=== PATIENT | female | born 1955 | race Caucasian/White ===

== ENCOUNTER 2019-10-28 14:15 | Emergency (ER) | payer MEDICARE, OTHER, SELFPAY ==
--- NOTE | ~2019-10-28 | XR_ITS ---
EXAMINATION: XR chest 2V 10/28/2019 14:39 INDICATION: Chest pain PROCEDURE: 2 view chest COMPARISON: 05/20/2015 FINDINGS: The lungs are clear. The cardiomediastinal silhouette is within normal limits. There are no pleural effusions. There is no pneumothorax suspected. IMPRESSION: 1: NO ACUTE CARDIOPULMONARY DISEASE. Reviewed, dictated and finalized at location A.
--- NOTE | 2019-10-28 14:22 | ECG_ITS ---
Measurements Intervals [place] Rate: 88 P: 168 KS: 141 QRS: 161 QRSD: 87 T: 161 QT: 347 QTc: 421 Interpretive Statements SINUS RHYTHM RSR' IN V1 OR V2, CONSIDER RIGHT VENTRICULAR HYPERTROPHY OR RIGHT VCD ARM LEADS REVERSED ATYPICAL ECG Electronically Signed On 10-28-2019 15:21:38 CDT by Russ Evans D.O.
[2019-10-28 14:25] VITALS: BP 148/66; PULSE 85; RESP 18; TEMP 36.4; O2SAT 100
[2019-10-28 14:41] LABS: Basophils Absolute Auto 0.1 K/mm3 (0.0-0.1); Basophils Percent Auto 0.9 % (0.2-1.2); Eosinophils Absolute Auto 0.1 K/mm3 (0-0.3); Eosinophils Percent Auto 1.8 % (0-4.4); Hematocrit 43.2 % (37.0-47.0); Hemoglobin 14.2 g/dL (12.0-15.0); Immature Granulocyte Absolute 0.02 K/mm3 (0.00-0.031); Immature Granulocyte Percent A 0.3 % (0-0.5); Lymphocytes Percent Auto 27.6 % (18.3-44.2); Mean Corpuscular HGB Conc 32.9 g/dl (32-36); Mean Corpuscular Hemoglobin 28.1 pg (26-34); Mean Corpuscular Volume 85.5 fl (80-100); Mean Platelet Volume 9.6 fl (7.4-10.4); Monocytes Absolute Auto 0.7 K/mm3 (0.1-0.6); Monocytes Percent Auto 8.4 % (2.6-8.5); Neutrophils Absolute Auto 4.9 K/mm3 (1.3-6.7); Platelet Count Result 246 k/mm3 (150-375); Red Blood Count 5.05 M/mm3 (4.2-5.4); Red Cell Distribution Width 13.8 % (11.5-14.5)
[2019-10-28 14:53] LABS: Blood Urea Nitrogen 13 mg/dL (7-17); Calcium 9.6 mg/dL (8.4-10.2); Carbon Dioxide 28 mmol/L (22-30); Chloride 101 mmol/L (98-107); Estimated Glomerular Filt Rate > 60; Glucose 90 mg/dL (65-105); Potassium 3.7 mmol/L (3.4-5.0); Sodium 140 mmol/L (137-145)
[2019-10-28 15:06] LABS: Troponin I < 0.012 ng/mL (0.000-0.034)
[2019-10-28 15:10] LABS: Add Urine Microscopic? NO; Appearance Urine Clear (Clear); Bilirubin Urine Negative (Negative); Blood Urine Negative (Negative); Color Urine Colorless (Yellow); Glucose Urine UA Negative (Negative); Ketones Urine Negative (Negative); Leukocyte Esterase Ur Negative LEU/UL (Negative); Nitrate Urine Negative (Negative); Protein Urine Negative (Negative); Specific Grav Ur 1.005 (1.001-1.035); Urobilinogen Urine Negative mg/dL (<2.0)
[2019-10-28 15:44] VITALS: BP 142/74; PULSE 88; RESP 17; O2SAT 97
--- NOTE | 2019-10-28 16:58 | ED.CHESTPAIN ---
HPI - Chest Pain General Chief Complaint: Chest Pain Stated Complaint: chest pain Time Seen by Provider: 10/28/19 15:29 History of Present Illness HPI narrative: Patient is a 64-year-old female who presents ER with left-sided chest pain. It occurred when she woke up today. It is a twinge or pull just in the left center part of her chest. No radiation. Lasted 4 to 6 seconds. She has had a couple other times today. No association with exertion. No runny nose/sore throat/productive cough. She has no diaphoresis. No history of heart disease. She does report that family member was recently diagnosed with a heart ailment after ignoring it and this is made her increasingly anxious about the discomfort she is having. Related Data Home Medications Medication Instructions Recorded Confirmed albuterol sulfate INHALATION 10/28/19 aspirin 81 mg PO DAILY 10/28/19 10/28/19 clonazepam 10/28/19 cyclobenzaprine mg 10/28/19 ergocalciferol (vitamin D2) 10/28/19 famotidine [Pepcid] 20 mg PO BID 10/28/19 10/28/19 fexofenadine 180 mg PO DAILY 10/28/19 10/28/19 levothyroxine 10/28/19 melatonin 3 mg PO HS PRN 10/28/19 10/28/19 omeprazole magnesium [Prilosec OTC] PO 10/28/19 Allergies Allergy/AdvReac Type Severity Reaction Status Date / Time cephalexin Allergy Mild Unknown Verified 10/28/19 15:40 clemastine Allergy Mild Unknown Verified 10/28/19 15:40 erythromycin base Allergy Mild Unknown Verified 10/28/19 15:40 hydrocodone Allergy Mild DIZZY, Verified 10/28/19 15:40 LIGHTHEADEDNESS naproxen Allergy Mild FLUSHING, Verified 10/28/19 15:40 HOT FLASHES Penicillins Allergy Mild Unknown Verified 10/28/19 15:40 Sulfa (Sulfonamide Allergy Mild Unknown Verified 10/28/19 15:40 Antibiotics) adhesive tape Allergy Unknown Unknown Verified 10/28/19 15:40 codeine Allergy Unknown Unknown Verified 10/28/19 15:40 tetracycline Allergy Unknown Unknown Unverified 10/28/19 15:40 Review of Systems Review of Systems: All systems reviewed & are unremarkable except as noted in HPI and below Constitutional: Constitutional: Denies chills, Denies fever(s) and Denies weakness ENT: Denies nasal congestion and Denies sore throat Cardiovascular: Cardiovascular: Reports chest pain, Denies rapid heart rate and Denies radiating jaw, neck or arm pain Respiratory: Respiratory: Denies cough, Denies dyspnea and Denies wheezing Musculoskeletal: Musculoskeletal: Denies back pain, Denies myalgias, Denies joint swelling and Reports muscle cramps PMFSH Past Medical History Medical History (Updated 10/28/19 @ 17:15 by Ersato Pacheco MD) Hyperlipidemia Hypertension Surgical History Surgical History (Updated 10/28/19 @ 17:04 by Erasto Pacheco MD) H/O tubal ligation Family History Family History (Updated 12/14/13 @ 07:13 by DOCTOR UNKNOWN) Father Malignant neoplasm of prostate Family history of mental disorder Family history of osteoarthritis Family history of cardiac disorder Mother Family history of cardiac disorder Family history of Alzheimer's disease Social History Social History Smoking status: Never smoker Alcohol intake: never Gender identity (if verbalized by the patient): Female Exam Narrative: Exam Narrative: GENERAL: Well-appearing, well-nourished, and in no acute distress. HEAD: Normocephalic, atraumatic. ENT: Mucous membranes moist. CHEST: Clear to auscultation. No respiratory distress. HEART: Regular rate and rhythm. Normal peripheral pulses. ABDOMEN: Soft, nontender, nondistended. EXTREMITIES: Normal range of motion. No edema. SKIN: Warm, dry, no rash. NEURO: Alert and oriented x3. Course Vital Signs Vital signs: Vital Signs Temperature 97.5 F L 10/28/19 14:25 Pulse Rate 85 10/28/19 14:25 Respiratory Rate 18 10/28/19 14:25 Blood Pressure 148/66 H 10/28/19 14:25 Pulse Oximetry 100 10/28/19 14:25 Temperature 97.5 F L 10/28/19 14:25 Pulse Rate 88
[2019-10-28 17:00] VITALS: BP 134/75; PULSE 81; RESP 17; O2SAT 97
== END 2019-10-28 17:05 | disposition home or self-care (01) ==
PROVIDERS: Emergency Provider Emergency Medicine
DX: R07.89 Other chest pain (principal); E78.5 Hyperlipidemia, unspecified; I10 Essential (primary) hypertension; R94.31 Abnormal electrocardiogram [ECG] [EKG]
CPT/HCPCS: 36415; 71046; 80048; 81003; 84484; 85025; 85610; 85730; 93005; 99284

== ENCOUNTER → 2020-01-09 09:41 | Outpatient (CLI) | payer MEDICARE, OTHER, SELFPAY ==
--- NOTE | ~2020-01-09 | MM_ITS ---
EXAMINATION: MM diagnostic [facility] BI w padmini HISTORY: Right breast lump, 6:00 TECHNIQUE: Bilateral ML, MLO and craniocaudal Tomosynthesis images of both breasts were performed and synthetic 2-D images were generated. CAD analysis was submitted and interpreted. COMPARISON: 03/08/2018, 07/29/2013 bilateral digital screening mammogram examinations BREAST PARENCHYMAL COMPOSITION: The breasts are almost entirely fatty. FINDINGS: No suspicious mass or architectural distortion, malignant calcification, skin thickening or retraction or significant new or developing density is detected. IMPRESSION: 1. No mammographic evidence of malignancy 2. Routine mammographic screening is recommended. BI-RADS Category 1: Negative Reviewed, dictated and finalized at location A.
== END ==
PROVIDERS: Visit Provider Nurse Practitioner Obstetrics & Gynecology
DX: N63.15 Unspecified lump in the right breast, overlapping quadrants (principal)
CPT/HCPCS: 77062; 77066; G0279

== ENCOUNTER → 2020-08-06 12:29 | Outpatient (CLI) | payer MEDICARE, OTHER, SELFPAY ==
--- NOTE | ~2020-08-06 | US_ITS ---
EXAMINATION: US soft tissue chest DATE: 08/06/2020 13:00 INDICATION: Palpable areas inferior to the bilateral breasts. TECHNIQUE: Multiple grayscale and Doppler ultrasound images of the region of concern at the anterior inferior left and right chest were obtained. COMPARISON: None FINDINGS: Normal appearance to the subcutaneous fat, ribs and intercostal spaces at the anterior chest wall reg ion of concern inferior to the left and right breasts. No abnormal masses or fluid collections identi fied. IMPRESSION: 1. Normal study. No etiology identified for palpable abnormality at the bilateral inframammary region s of concern. Reviewed, dictated and finalized at location A. IMPRESSION: 1. Normal study. No etiology identified for palpable abnormality at the bilater al inframammary regions of concern.
== END ==
DX: R22.9 Localized swelling, mass and lump, unspecified (principal)
CPT/HCPCS: 76604

== ENCOUNTER → 2021-10-24 12:51 | Outpatient (CLI) | payer MEDICARE, OTHER, SELFPAY ==
--- NOTE | ~2021-10-24 | MM_ITS ---
EXAMINATION: MM screening [facility] BI w padmini HISTORY: Screening TECHNIQUE: Craniocaudal and mediolateral oblique 3-D tomosynthesis images were obtained and synthetic 2-D images were generated. CAD analysis was submitted and interpreted. COMPARISON: Comparison to multiple prior studies sequentially, with oldest reviewed study dated 06/04. BREAST PARENCHYMAL COMPOSITION: There are scattered areas of fibroglandular density. FINDINGS: There is no evidence of suspicious mass, calcification, or architectural distortion to sugg est malignancy in either breast. There has been no suspicious interval change. IMPRESSION: 1. No mammographic evidence of malignancy. 2. Recommend routine screening mammography in one year. BI-RADS Category 1: Negative Reviewed, dictated and finalized at location A.
== END ==
PROVIDERS: Visit Provider Nurse Practitioner Obstetrics & Gynecology
DX: Z12.31 Encounter for screening mammogram for malignant neoplasm of breast (principal)
CPT/HCPCS: 77063; 77067

== ENCOUNTER 2021-11-20 14:14 | Emergency (ER) | payer MEDICARE, OTHER, SELFPAY ==
[2021-11-20 14:19] VITALS: BP 137/71; PULSE 97; RESP 16; TEMP 36.2; O2SAT 98
--- NOTE | 2021-11-20 14:33 | ED.SKABFB ---
HPI - Skin/Abscess/Foreign Bdy General Chief complaint: Skin/Abscess/Foreign Body Stated complaint: rash Time Seen by Provider: 11/20/21 14:17 Source: patient Mode of arrival: ambulatory Limitations: no limitations History of Present Illness HPI narrative: Ms. Sorto is a 66-year-old female patient presenting to the clinic today with complaints of pinpoint rash to her face, neck, and right knee. Reports the rash began on Wednesday and has spread some. States that the areas itch some and has caused some swelling underneath her left eye. She denies any new environmental changes however she states she has been watering a plant at home and thinks that this might be a contact dermatitis due to the plant or possibly to her pillow use. Related Data Home Medications Medication Instructions Recorded Confirmed clonazepam 0.5 mg tablet 10/28/19 cyclobenzaprine 5 mg tablet mg BID 10/28/19 ergocalciferol (vitamin D2) 1,250 10/28/19 mcg (50,000 unit) capsule denosumab 60 mg/mL subcutaneous 60 mg subcut [id number] 12/27/19 syringe (Prolia) hydrocortisone 2.5 % topical cream 2 applic topical BID PRN 12/27/19 mometasone 50 mcg/actuation nasal 2 spray intranasal DAILY 12/27/19 spray (Nasonex) famotidine 20 mg tablet (Pepcid) 20 mg PO DAILY 12/27/20 fexofenadine 180 mg tablet 90 mg PO BID 12/27/20 melatonin 3 mg tablet 5 mg PO HS PRN Insomnia 12/27/20 rosuvastatin 20 mg tablet (Crestor) 40 mg PO DAILY 12/27/20 Calcium 600 with Vitamin D2 11/20/21 levothyroxine 88 mcg tablet mcg 11/20/21 Allergies Allergy/AdvReac Type Severity Reaction Status Date / Time cephalexin Allergy Mild Unknown Verified 12/27/20 11:11 clemastine Allergy Mild Unknown Verified 12/27/20 11:11 erythromycin base Allergy Mild Unknown Verified 12/27/20 11:11 hydrocodone Allergy Mild DIZZY, Verified 12/27/20 11:11 LIGHTHEADEDNESS naproxen Allergy Mild FLUSHING, Verified 12/27/20 11:11 HOT FLASHES Penicillins Allergy Mild Unknown Verified 12/27/20 11:11 Sulfa (Sulfonamide Allergy Mild Unknown Verified 12/27/20 11:11 Antibiotics) adhesive tape Allergy Unknown Unknown Verified 12/27/20 11:11 codeine Allergy Unknown Unknown Verified 12/27/20 11:11 tetracycline Allergy Unknown Unknown Unverified 12/27/20 11:11 Review of Systems Review of Systems: Pertinent positives per HPI. Patient denies any fever, chills,, headache, visual changes, dizziness, cough, runny nose, sore throat, shortness of breath, chest pain, palpitations, nausea, vomiting, diarrhea, constipation, abdominal pain, or any urinary issues. [facility] Past Medical History Medical History Allergies Depression Hyperlipidemia Hypertension IBS (irritable bowel syndrome) Lipoma Mild acid reflux PAWAN on CPAP Sleep apnea Surgical History Surgical History H/O tubal ligation History of tonsillectomy Family History Family History Father Family history of mental disorder Family history of osteoarthritis Family history of cardiac disorder Family history of prostate cancer in father Mitral valve prolapse Mother Family history of cardiac disorder Family history of Alzheimer's disease Social History Social History Smoking status: Never smoker Alcohol intake: never Gender identity (if verbalized by the patient): Female Comments At the time of my signature, I reviewed and agree with the nursing past medical, surgical, social, and family history. There is no relevant family history pertinent to the patient complaint. Exam Narrative: General: Well-developed, well nourished, in no apparent distress Head: Normocephalic, atraumatic. Cardio: Regular rate and rhythm, s1 and s2 normal, no murmur appreciated. Resp: Clear to auscultation bilate
== END 2021-11-20 14:40 | disposition home or self-care (01) ==
PROVIDERS: Emergency Provider Nurse Practitioner Family
DX: R21 Rash and other nonspecific skin eruption (principal); E78.5 Hyperlipidemia, unspecified; I10 Essential (primary) hypertension; G47.33 Obstructive sleep apnea (adult) (pediatric); K21.9 Gastro-esophageal reflux disease without esophagitis
CPT/HCPCS: 99213; G0463

== ENCOUNTER 2022-09-28 14:12 | Emergency (ER) | payer MEDICARE, OTHER, SELFPAY ==
[2022-09-28 14:26] VITALS: BP 128/82; PULSE 96; RESP 18; TEMP 36.8; O2SAT 100
--- NOTE | 2022-09-28 14:31 | ED.SKABFB ---
HPI - Skin/Abscess/Foreign Bdy General Chief complaint: Skin/Abscess/Foreign Body Stated complaint: rash on skin Time Seen by Provider: 09/28/22 14:30 Source: patient Mode of arrival: ambulatory Limitations: no limitations History of Present Illness HPI narrative: Ms. Aniya middleton is a 67-year-old female patient presenting to the clinic today with complaints of a rash to her legs, arms, and abdomen. She reports that she thinks they may be spider bites. States that the started off is red and became blistery and are draining. She denies any pain. Denies any fever or chills. States that the rash is very itchy. Related Data Home Medications Medication Instructions Recorded Confirmed clonazepam 0.5 mg tablet 10/28/19 cyclobenzaprine 5 mg tablet mg BID 10/28/19 ergocalciferol (vitamin D2) 1,250 10/28/19 mcg (50,000 unit) capsule denosumab 60 mg/mL subcutaneous 60 mg subcut [id number] 12/27/19 syringe (Prolia) hydrocortisone 2.5 % topical cream 2 applic topical BID PRN 12/27/19 mometasone 50 mcg/actuation nasal 2 spray intranasal DAILY 12/27/19 spray (Nasonex) famotidine 20 mg tablet (Pepcid) 20 mg PO DAILY 12/27/20 fexofenadine 180 mg tablet 90 mg PO BID 12/27/20 rosuvastatin 20 mg tablet (Crestor) 40 mg PO DAILY 12/27/20 Calcium 600 with Vitamin D2 11/20/21 levothyroxine 88 mcg tablet mcg 11/20/21 melatonin 3 mg tablet 3 mg PO HS PRN Insomnia 07/29/22 Allergies Allergy/AdvReac Type Severity Reaction Status Date / Time cephalexin Allergy Mild Unknown Verified 09/28/22 14:36 clemastine Allergy Mild Unknown Verified 09/28/22 14:36 erythromycin base Allergy Mild Unknown Verified 09/28/22 14:36 hydrocodone Allergy Mild DIZZY, Verified 09/28/22 14:36 LIGHTHEADEDNESS naproxen Allergy Mild FLUSHING, Verified 09/28/22 14:36 HOT FLASHES Penicillins Allergy Mild Unknown Verified 09/28/22 14:36 Sulfa (Sulfonamide Allergy Mild Unknown Verified 09/28/22 14:36 Antibiotics) adhesive tape Allergy Unknown Unknown Verified 09/28/22 14:36 codeine Allergy Unknown Unknown Verified 09/28/22 14:36 tetracycline Allergy Unknown Unknown Verified 09/28/22 14:36 Review of Systems Review of Systems: Pertinent positives per HPI. Patient denies any fever, chills, headache, visual changes, dizziness, cough, runny nose, sore throat, shortness of breath, chest pain, palpitations, nausea, vomiting, diarrhea, constipation, abdominal pain, or any urinary issues. PMFSH Past Medical History Medical History Allergies Depression Hyperlipidemia Hypertension IBS (irritable bowel syndrome) Lipoma Mild acid reflux PAWAN on CPAP Sleep apnea Surgical History Surgical History H/O tubal ligation History of tonsillectomy Family History Family History Father Family history of mental disorder Family history of osteoarthritis Family history of cardiac disorder Family history of prostate cancer in father Mitral valve prolapse Mother Family history of cardiac disorder Family history of Alzheimer's disease Social History Social History Smoking status: Never smoker Alcohol intake: never Gender identity (if verbalized by the patient): Female Comments At the time of my signature, I reviewed and agree with the nursing past medical, surgical, social, and family history. There is no relevant family history pertinent to the patient complaint. Exam Narrative: General: Well-developed, well nourished, in no apparent distress Head: Normocephalic, atraumatic. Cardio: Regular rate and rhythm, s1 and s2 normal, no murmur appreciated. Resp: Clear to auscultation bilaterally, no rhonchi, rales, wheezing or rubs. Integumentary: [place], warm, and dry, red raised itchy blister
== END 2022-09-28 14:45 | disposition home or self-care (01) ==
PROVIDERS: Emergency Provider Nurse Practitioner Family
DX: S80.862A Insect bite (nonvenomous), left lower leg, initial encounter (principal); S80.861A Insect bite (nonvenomous), right lower leg, initial encounter; S30.861A Insect bite (nonvenomous) of abdominal wall, initial encounter; S40.862A Insect bite (nonvenomous) of left upper arm, initial encounter; S40.861A Insect bite (nonvenomous) of right upper arm, initial encounter; W57.XXXA Bitten or stung by nonvenomous insect and other nonvenomous arthropods, initial encounter; E78.5 Hyperlipidemia, unspecified; I10 Essential (primary) hypertension; K21.9 Gastro-esophageal reflux disease without esophagitis; G47.33 Obstructive sleep apnea (adult) (pediatric)
CPT/HCPCS: 99213; G0463

== ENCOUNTER 2024-10-08 11:25 | Emergency (ER) | payer MEDICARE, SELFPAY ==
--- NOTE | 2024-10-08 11:29 | ED.SKABFB ---
HPI - Skin/Abscess/Foreign Bdy General Chief complaint: Skin/Abscess/Foreign Body Stated complaint: Leg and Arms Skin Irritation,Open Sore Time Seen by Provider: 10/08/24 11:29 Source: patient Mode of arrival: ambulatory Limitations: no limitations History of Present Illness HPI narrative: Lalitha is a 69-year-old female patient presenting to the clinic today with complaints red raised itchy rash on her arms, legs, buttocks, and back. She reports symptoms started on . States she has been sitting outside and bugs have been biting her. States she felt a stinging sensation to her back a few days ago and took her shirt off and saw a little black bug biting her. Does have a blister to the left lower medial extremity. Patient is diabetic. Related Data Home Medications ?Medication ?Instructions ?Recorded ?Confirmed ?Last Taken ?Type cyclobenzaprine 5 mg tablet 5 mg PO BID PRN muscle spasms 10/28/19 09/21/24 Unknown History denosumab 60 mg/mL subcutaneous 60 mg subcut [id number] 12/27/19 09/21/24 Unknown History syringe (Prolia) mometasone 50 mcg/actuation nasal 2 spray intranasal DAILY 12/27/19 09/21/24 Unknown History spray (Nasonex) famotidine 20 mg tablet (Pepcid) 20 mg PO DAILY 12/27/20 09/21/24 Unknown History fexofenadine 180 mg tablet 90 mg PO BID 12/27/20 09/21/24 Unknown History melatonin 5 mg capsule mg PO .nightly 07/29/23 09/21/24 Unknown History ergocalciferol (vitamin D2) 1,250 1,250 mcg PO 2XW 02/03/24 09/21/24 Unknown History mcg (50,000 unit) capsule calcium carbonate (Calcium 600) 600 mg PO DAILY 04/20/24 09/21/24 Unknown History metformin 500 mg tablet 500 mg PO DAILY 04/20/24 10/08/24 Unknown History rosuvastatin 20 mg tablet (Crestor) 20 mg PO DAILY 05/30/24 09/21/24 Unknown History clonazepam 0.5 mg tablet (Klonopin) 0.5 mg PO DAILY PRN 06/27/24 09/21/24 Unknown History levothyroxine 112 mcg capsule 112 mcg PO DAILY 06/27/24 10/08/24 Unknown History levothyroxine 88 mcg tablet mcg 10/08/24 Unknown History (Synthroid) Allergies Allergy/AdvReac Type Severity Reaction Status Date / Time cephalexin Allergy Mild Unknown Verified 09/21/24 11:31 clemastine Allergy Mild Unknown Verified 09/21/24 11:31 erythromycin base Allergy Mild Unknown Verified 10/08/24 11:39 hydrocodone Allergy Mild DIZZY, Verified 09/21/24 11:31 LIGHTHEADEDNESS naproxen Allergy Mild FLUSHING, Verified 09/21/24 11:31 HOT FLASHES Penicillins Allergy Mild Unknown Verified 10/08/24 11:39 Sulfa (Sulfonamide Allergy Mild Unknown Verified 10/08/24 11:39 Antibiotics) adhesive tape Allergy Unknown Unknown Verified 09/21/24 11:31 codeine Allergy Unknown Unknown Verified 09/21/24 11:31 tetracycline Allergy Unknown Unknown Verified 10/08/24 11:39 Review of Systems Review of Systems: Pertinent positives per HPI. Patient denies any fever, chills, rash, headache, visual changes, dizziness, cough, runny nose, sore throat, shortness of breath, chest pain, palpitations, nausea, vomiting, diarrhea, constipation, abdominal pain, or any urinary issues. [facility] Past Medical History Medical History History of prediabetes PAWAN on CPAP Lipoma Depression Allergies Mild acid reflux IBS (irritable bowel syndrome) Sleep apnea Hyperlipidemia Hypertension Surgical History Surgical History History of tonsillectomy H/O tubal ligation Family History Family History Father Family history of mental disorder Family history of osteoarthritis Family history of cardiac disorder Family history of prostate cancer in father Mitral valve prolapse Mother Family history of cardiac disorder Family history of Alzheimer's disease Social History Social History Smoking status: Never smoker Alcohol intake: never Do You Feel Safe in your Home?: Yes Lack of Transportation: No Lack of Food: Never True Current Housing: I Have Housing Concerned About Future Housing: No Difficulty Paying Gas/Electric Bills: No Difficulty Paying for Meds: No Currently Unemployed: No Education: Associate Degree Difficulty w/ Childcare or Family Care: No Gender identity (if verbalized by the patient): Female Comments At the time of my signature, I reviewed and agree with the nursing past medical, surgical, social, and family history. There is no relevant family history pertinent to the patient complaint. Exam Narrative: General: Well-developed, well nourished, in no apparent distress Head: Normocephalic, atraumatic. Cardio: Regular rate and rhythm, s1 and s2 normal, no murmur appreciated. Resp: Clear to auscultation bilaterally, no rhonchi, rales, wheezing or rubs. Integumentary: [place], warm, and dry, red raised indurated itchy insect bites to the legs, arms, back, and right buttocks, blister to the left lower medial leg-blister drained using a 23 gauge needle and area was cleansed with antiseptic wound wash. Course Course Emergency Course: Portions of this record may have been created with voice recognition software. Level of Care: Express Care Visit Vital Signs Vital signs: Vital Signs Temperature 36.8 C 10/08/24 11:34 Pulse Rate 94 10/08/24 11:34 Respiratory Rate 20 10/08/24 11:34 Blood Pressure 131/72 10/08/24 11:34 Pulse Oximetry 99 10/08/24 11:34 Oxygen Delivery Room Air 10/08/24 11:34 Temperature 36.8 C 10/08/24 11:34 Pulse Rate 94 10/08/24 11:34 Respiratory Rate 20 10/08/24 11:34 Blood Pressure 131/72 10/08/24 11:34 Pulse Oximetry 99 10/08/24 11:34 Oxygen Delivery Room Air 10/08/24 11:34 Vital signs reviewed MDM - Skin/Abscess/Foreign Bdy MDM Narrative Medical decision making narrative: At the time of visit patient is resting comfortably on the exam table. Patient appears to be nontoxic. Plan: I suspect patient has a general allergic reaction to insect bites. Prescription for triamcinolone cream was sent to the pharmacy. Blister was drained in the clinic today using a 23 gauge needle and the area was washed using antiseptic wound wash. Supportive measures were discussed with the patient and they voiced understanding discharge instructions and agrees to treatment plan. Return precautions reviewed Differential Diagnosis Differential diagnosis: Likely abscess of skin or subcutaneous tissue, viral exanthem, dermatophytosis, urticaria, herpes zoster, cellulitis, eczema, insect bites, impetigo and contact dermatitis Discharge Plan Discharge Clinical Impression: Insect bites Qualifiers: Encounter type: initial encounter Site of insect bite: unspecified site Qualified Code(s): W57.XXXA - Bitten or stung by nonvenomous insect and other nonvenomous arthropods, initial encounter Allergic reaction Qualifiers: Encounter type: initial encounter Qualified Code(s): T78.40XA - Allergy, unspecified, initial encounter Patient Disposition: Home Condition: Stable Instructions: Antibiotic Form, Insect Bite or Sting (ED), General Allergic Reaction (ED) Additional Instructions: I suspect this may be an allergic reaction to insect bites Apply triamcinolone cream to the affected area twice daily as directed Blister was drained in the clinic today-keep area clean and dry May continue Benadryl as needed for itching Avoid scratching as this can cause a secondary infection Follow-up with your Dermatology as scheduled Patient Language: Guatemalan Prescriptions: New triamcinolone acetonide 0.1 % cream 1 applic topical BID 7 Days Qty: 30 0RF No Action levothyroxine [Synthroid] 88 mcg tablet melatonin 5 mg capsule PO .nightly mometasone [Nasonex] 50 mcg/actuation spray,non-aerosol 2 spray NASAL DAILY Rx Instructions: administer into each nostril Prolia 60 mg/mL syringe 60 mg SUB-Q [id number] rosuvastatin [Crestor] 20 mg tablet 20 mg PO DAILY metformin 500 mg tablet 500 mg PO DAILY calcium carbonate [Calcium 600] 600 mg calcium (1,500 mg) tablet 600 mg PO DAILY levothyroxine 112 mcg capsule 112 mcg PO DAILY clonazepam [Klonopin] 0.5 mg tablet 0.5 mg PO DAILY PRN cyclobenzaprine 5 mg tablet 5 mg PO BID PRN (Reason: muscle spasms) famotidine [Pepcid] 20 mg tablet 20 mg PO DAILY fexofenadine 180 mg tablet 90 mg PO BID ergocalciferol (vitamin D2) 1,250 mcg (50,000 unit) capsule 1,250 mcg PO 2XW Follow-up/Referrals: UNKNOWN,DOCTOR [Primary Care Provider] - Time of Disposition: 11:50 [facility] Nursing Documentation ED NIHSS nursing documentation: reviewed/agree
[2024-10-08 11:34] VITALS: BP 131/72; PULSE 94; RESP 20; TEMP 36.8; O2SAT 99
== END 2024-10-08 12:04 | disposition home or self-care (01) ==
PROVIDERS: Emergency Provider Nurse Practitioner Family
DX: T78.40XA Allergy, unspecified, initial encounter (principal); I10 Essential (primary) hypertension; W57.XXXA Bitten or stung by nonvenomous insect and other nonvenomous arthropods, initial encounter
CPT/HCPCS: 99213; G0463

== ENCOUNTER 2024-11-01 12:35 | Outpatient (CLI) | payer MEDICARE, SELFPAY ==
--- NOTE | ~2024-11-01 | MM_ITS ---
EXAMINATION: MM screening [facility] BI w padmini HISTORY: Screening TECHNIQUE: Craniocaudal and mediolateral oblique 3-D tomosynthesis images were obtained and synthetic 2-D images were generated. CAD analysis was submitted and interpreted. COMPARISON: Comparison to multiple prior studies sequentially, with oldest reviewed study dated 06/2017. BREAST PARENCHYMAL COMPOSITION: Not dense: There are scattered areas of fibroglandular density. FINDINGS: There is no evidence of suspicious mass, calcification, or architectural distortion to sugg est malignancy in either breast. There has been no suspicious interval change. IMPRESSION: 1. No mammographic evidence of malignancy. 2. Recommend routine screening mammography in one year. BI-RADS Category 1: Negative Reviewed, dictated and finalized at location B.
== END 2024-11-01 12:36 | disposition home or self-care (01) ==
PROVIDERS: Visit Provider Obstetrics & Gynecology Gynecology
DX: Z12.31 Encounter for screening mammogram for malignant neoplasm of breast (principal)
CPT/HCPCS: 77063; 77067

== ENCOUNTER 2024-12-07 16:00 | Emergency (ER) | payer MEDICARE, SELFPAY ==
[2024-12-07 16:14] VITALS: BP 121/67; PULSE 89; RESP 18; TEMP 36.4; O2SAT 100
--- NOTE | 2024-12-07 17:15 | ED.SKABFB ---
HPI - Skin/Abscess/Foreign Bdy General Chief complaint: Wound/Laceration Stated complaint: Insect Bite Time Seen by Provider: 12/07/24 17:00 Source: patient and RN notes reviewed Mode of arrival: ambulatory Limitations: no limitations History of Present Illness HPI narrative: 69-year-old female presents [facility] complaining of insect sting to her right middle finger. Patient said yesterday she was stung by mud dauber says since she reports worsening redness and swelling to her right middle finger. Patient reports a burning sensation to her finger. Patient patient apply her triamcinolone cream once prior to arrival and has taken her daily Clover without relief. Patient is also doing cold compresses. Patient denies any hives, breathing problems, wheezing, nausea vomiting, swelling to her face, lips, tongue, throat, or any other symptoms. Patient recently had steroids in the steroid injection yesterday. Related Data Home Medications ?Medication ?Instructions ?Recorded ?Confirmed ?Last Taken ?Type cyclobenzaprine 5 mg tablet 5 mg PO BID PRN muscle spasms 10/28/19 09/21/24 Unknown History denosumab 60 mg/mL subcutaneous 60 mg subcut [id number] 12/27/19 09/21/24 Unknown History syringe (Prolia) mometasone 50 mcg/actuation nasal 2 spray intranasal DAILY 12/27/19 09/21/24 Unknown History spray (Nasonex) famotidine 20 mg tablet (Pepcid) 20 mg PO DAILY 12/27/20 09/21/24 Unknown History fexofenadine 180 mg tablet 90 mg PO BID 12/27/20 09/21/24 Unknown History melatonin 5 mg capsule mg PO .nightly 07/29/23 09/21/24 Unknown History ergocalciferol (vitamin D2) 1,250 1,250 mcg PO 2XW 02/03/24 09/21/24 Unknown History mcg (50,000 unit) capsule calcium carbonate (Calcium 600) 600 mg PO DAILY 04/20/24 09/21/24 Unknown History rosuvastatin 20 mg tablet (Crestor) 20 mg PO DAILY 05/30/24 09/21/24 Unknown History levothyroxine 88 mcg tablet mcg 10/08/24 Unknown History (Synthroid) Allergies Allergy/AdvReac Type Severity Reaction Status Date / Time cephalexin Allergy Mild Unknown Verified 12/07/24 16:42 clemastine Allergy Mild Unknown Verified 12/07/24 16:42 erythromycin base Allergy Mild Unknown Verified 12/07/24 16:42 hydrocodone Allergy Mild DIZZY, Verified 12/07/24 16:42 LIGHTHEADEDNESS naproxen Allergy Mild FLUSHING, Verified 12/07/24 16:42 HOT FLASHES Penicillins Allergy Mild Unknown Verified 12/07/24 16:42 Sulfa (Sulfonamide Allergy Mild Unknown Verified 12/07/24 16:42 Antibiotics) adhesive tape Allergy Unknown Unknown Verified 12/07/24 16:42 codeine Allergy Unknown Unknown Verified 12/07/24 16:42 tetracycline Allergy Unknown Unknown Verified 12/07/24 16:42 Review of Systems Review of Systems: CONSTITUTIONAL: Denies fever, chills, or sweats. EYES: Denies visual changes, redness, or discharge. ENT: Denies rhinorrhea, congestion, sore throat, or otalgia. CARDIOVASCULAR: Denies chest pain, palpitations, or edema. RESPIRATORY: Denies cough or dyspnea. GASTROINTESTINAL: Denies abdominal pain, nausea, vomiting, or diarrhea. GENITOURINARY: Denies dysuria or hematuria. SKIN: Denies rash or itching. Positive for insect sting, redness, swelling. MUSCULOSKELETAL: Denies back pain, joint pain, or myalgia. NEUROLOGIC: Denies headache, numbness, or weakness. PSYCHIATRIC: Denies anxiety or depression. All other systems reviewed are negative, except as documented in HPI. PMFSH Past Medical History Medical History History of prediabetes PAWAN on CPAP Lipoma Depression Allergies Mild acid reflux IBS (irritable bowel syndrome) Sleep apnea Hyperlipidemia Hypertension Surgical History Surgical History History of tonsillectomy H/O tubal ligation Family History Family History Father Family history of mental disorder Family history of osteoarthritis Family history of cardiac disorder Family history of prostate cancer in father Mitral valve prolapse Mother Family history of cardiac disorder Family history of Alzheimer's disease Social History Social History Smoking status: Never smoker Alcohol intake: never Concerned About Future Housing: Decline to Answer Difficulty Paying Gas/Electric Bills: Decline to Answer Difficulty Paying for Meds: Decline to Answer Currently Unemployed: Decline to Answer Difficulty w/ Childcare or Family Care: Decline to Answer Gender identity (if verbalized by the patient): Female Comments At the time of my signature, I reviewed and agree with the nursing past medical, surgical, social, and family history. There is no relevant family history pertinent to the patient complaint. Exam Narrative: GENERAL: This is a well-nourished, well-developed adult, in no apparent distress. They are non ill-appearing, nontoxic appearing. HEAD: normocephalic, atraumatic. No swelling. EYES: Sclera clear/white. Conjunctiva normal. Vision is grossly intact. Extraocular movements intact EARS: External ears normal, Hearing grossly intact. NOSE: External nose normal THROAT: Mucous membranes moist, NECK: Neck supple, nontender without lymphadenopathy, no swelling, masses, no thyromegaly. CARDIOVASCULAR: Regular rate and rhythm RESPIRATORY: Respiratory rate normal, respiratory effort nonlabored, no respiratory distress SKIN: Right middle finger is erythematous and blanchable. Is not hot to touch and nontender. No exudate, no area of fluctuance, no induration. Neurovascular status intact. No other rash or suspicious lesions to the rest of the body. NEURO: awake, alert, and oriented to person, place and time. There were no obvious focal neurologic abnormalities. EXTREMITIES: No joint tenderness, effusion, or edema noted. Course Course Emergency Course: Portions of this record may have been created with voice recognition software Level of Care: Express Care Visit Vital Signs Vital signs: Vital Signs Temperature 97.6 F 12/07/24 16:14 Pulse Rate 89 12/07/24 16:14 Respiratory Rate 18 12/07/24 16:14 Blood Pressure 121/67 12/07/24 16:14 Pulse Oximetry 100 12/07/24 16:14 Oxygen Delivery Room Air 12/07/24 16:14 Temperature 97.6 F 12/07/24 16:14 Pulse Rate 89 12/07/24 16:14 Respiratory Rate 18 12/07/24 16:14 Blood Pressure 121/67 12/07/24 16:14 Pulse Oximetry 100 12/07/24 16:14 Oxygen Delivery Room Air 08/21/25 16:14 Reviewed MDM - Skin/Abscess/Foreign Bdy MDM Narrative Medical decision making narrative: Patient likely has local reaction from insect sting. Will have patient use her triamcinolone cream twice a day for next week to the affected area and continue to take her Clover daily. Also advised patient to cold compresses. Discussed physical exam findings. Advised supportive measures and signs/symptoms to go to the ER. Pt is appropriate for outpt treatment and f/u. Differential Diagnosis Differential diagnosis: Likely abscess of skin or subcutaneous tissue, urticaria, cellulitis, insect bites and other (Allergic reaction, insect sting) Critical Care Time Critical Care Time Critical Care Time: No Discharge Plan Discharge Clinical Impression: Accidental insect sting Patient Disposition: Home Condition: Stable Instructions: Insect Bite or Sting (ED) Additional Instructions: You may use cold compresses 20 minutes at a time, a few times a help with swelling. Apply your triamcinolone cream to the affected area twice a day for 1 week. Continue take your Clover daily. Follow-up with your PCP in 3-5 days. The worsening redness, swelling, pain, fevers, green/yellow discharge, full body rash, hives, swelling to the lips, face, tongue, throat, breathing problems, wheezing, nausea, vomiting, or any other serious concerns please go to the ER immediately. Patient Language: Spanish Prescriptions: No Action levothyroxine [Synthroid] 88 mcg tablet triamcinolone acetonide 0.1 % cream 1 applic topical BID 7 Days Qty: 30 0RF melatonin 5 mg capsule PO .nightly mometasone [Nasonex] 50 mcg/actuation spray,non-aerosol 2 spray NASAL DAILY Rx Instructions: administer into each nostril Prolia 60 mg/mL syringe 60 mg SUB-Q [id number] rosuvastatin [Crestor] 20 mg tablet 20 mg PO DAILY calcium carbonate [Calcium 600] 600 mg calcium (1,500 mg) tablet 600 mg PO DAILY cyclobenzaprine 5 mg tablet 5 mg PO BID PRN (Reason: muscle spasms) famotidine [Pepcid] 20 mg tablet 20 mg PO DAILY fexofenadine 180 mg tablet 90 mg PO BID ergocalciferol (vitamin D2) 1,250 mcg (50,000 unit) capsule 1,250 mcg PO 2XW Follow-up/Referrals: criss Lockwood [Other] Time of Disposition: 17:14
== END 2024-12-07 17:21 | disposition home or self-care (01) ==
DX: T63.461A Toxic effect of venom of wasps, accidental (unintentional), initial encounter (principal); I10 Essential (primary) hypertension; E78.5 Hyperlipidemia, unspecified; R73.03 Prediabetes; G47.33 Obstructive sleep apnea (adult) (pediatric); K21.9 Gastro-esophageal reflux disease without esophagitis
CPT/HCPCS: 99211; G0463